=== PATIENT | female | born 1950 | race Caucasian/White ===

== ENCOUNTER 2023-12-31 23:08 | Inpatient (IN) ==
[2023-12-31 23:41] LABS: ABS Basophils 0.1 10^3/uL (0.0-0.1); ABS Eosinophils 0.1 10^3/uL (0.0-0.5); ABS Lymphocytes 1.3 10^3/uL (1.0-4.8); ABS Monocytes 0.8 10^3/uL (0.0-0.9); ABS Neutrophils 9.5 10^3/uL (1.5-7.6); Hematocrit 34.4 % (35-45); Hemoglobin 11.2 g/dL (11.5-14.3); Lymphocyte % 11.3 %; Mean Corpuscular Hemoglobin 29.6 pg (27-33); Mean Corpuscular Hgb Conc 32.5 g/dL (31-36); Mean Corpuscular Volume 90.9 fL (80-97); Mean Platelet Volume 6.6 fL (7.5-11.2); Platelet Count 244 10^3/uL (150-450); Red Blood Count 3.78 10^6/uL (3.63-4.92); Red Cell Distribution Width 15.1 % (12-17); White Blood Count 11.9 10^3/uL (3.8-11.8)
[2023-12-31 23:47] LABS: INR 1.17 (0.83-1.13)
[2024-01-01 00:06] LABS: Urine Appearance Clear; Urine Bilirubin 1+ (Negative); Urine Blood Negative (Negative); Urine Color Yellow; Urine Glucose Negative (Negative); Urine Ketones Negative (Negative); Urine Nitrite Negative (Negative); Urine Protein 1+ (>=30 mg/dL) (Negative); Urine Specific Gravity 1.026 (1.002-1.030); Urine Urobilinogen 1+ (Negative); Urine pH 5.5 (5.0-8.0)
[2024-01-01 00:08] LABS: High Sens Troponin Baseline 5 pg/mL (<15)
[2024-01-01 00:13] LABS: Urine Bacteria Absent /HPF (Absent); Urine Red Blood Cell Trace(0-2/hpf) /HPF (0-Trace); Urine White Blood Cell Trace(0-5/hpf) /HPF (0-Trace)
[2024-01-01 00:52] LABS: ALT 40 U/L (7-52); Albumin 3.7 g/dL (3.2-5.2); Albumin/Globulin Ratio 0.9 (1-3); Alkaline Phosphatase 90 U/L (35-149); Anion Gap 9 mmol/L (2-16); Blood Urea Nitrogen 34 mg/dL (6-24); CO2 Carbon Dioxide 17 mmol/L (22-32); Calcium 9.2 mg/dL (8.6-10.3); Chloride 106 mmol/L (101-111); Creatine Kinase 97 U/L (10-223); Creatinine, Serum 2.31 mg/dL (0.51-0.95); Globulin 4.1 g/dL (2-4); Glucose 229 mg/dL (70-100); Sodium 132 mmol/L (135-145); Total Bilirubin 0.5 mg/dL (0.2-1.0); Total Protein 7.8 g/dL (6.4-8.9); eGFR CKD-EPI 21.5 (>60)
[2024-01-01 00:59] LABS: TSH Ultra Thyroid Stim Horm 2.94 mcIU/mL (0.34-5.60)
[2024-01-01 01:21] LABS: Magnesium 1.6 mg/dL (1.9-2.7); Potassium Redraw 6.3 mmol/L (3.5-5.0)
[2024-01-01] MEDS: CALCIUM GLUCONATE 1GM/50ML NS 1 GM/50 ML BAG IV ONE (01:32)
[2024-01-01] MEDS: Dextrose 50% Syringe 50 ml 25 GM/50 ML SYRINGE IV PUSH ONE ×2 (01:32→05:38)
[2024-01-01] MEDS: Furosemide 40 mg/4 ml IV VIAL IV SLOW PU ONE (01:32)
[2024-01-01 03:41] LABS: Alcohol, S < 13 mg/dL (<13); Potassium 5.6 mmol/L (3.5-5.0); Uric Acid 6.9 mg/dL (2.3-6.6)
[2024-01-01] MEDS ORDERED: Albuterol HFA INHALER 8 gm MDI INH PRN (05:33)
[2024-01-01] MEDS: Piperacillin/Tazobac 3.375 BAG 3.375 GM/100 ML BAG IV ONE (05:41)
[2024-01-01] MEDS: NS 0.9% 1000 ml BAG 1,000 ML IV SCH ×2 (05:42→14:50)
[2024-01-01] MEDS ORDERED: Zosyn per Pharmacy NOTE FOLLOW UP SCH (06:00)
[2024-01-01] MEDS: Magnesium Sulf 4 GM/100 ML IV 4,000 MG/100 ML BAG IVPB ONE (06:34)
[2024-01-01] MEDS ORDERED: Dextrose 50% Syringe 50 ml 25 GM/50 ML SYRINGE IV PUSH PRN (07:17)
[2024-01-01] MEDS ORDERED: ZOSYN 3.375 GM Q8H per EXTENDED INFUSION IV SCH (10:00)
[2024-01-01] MEDS: ZOSYN 3.375 GM Q8H per EXTENDED INFUSION IV SCH (10:03)
[2024-01-01] MEDS: Enoxaparin 30 MG/0.3 ML SYR SUBCUT SCH (10:12)
[2024-01-01] MEDS: DULoxetine DR 60 mg CAP PO SCH (10:35)
[2024-01-01] MEDS: SODIUM ZIRCONIUM CYCLOSILICATE 10 GM PACKET PO SCH (10:35)
[2024-01-01 11:20] LABS: Folate 16.03 ng/mL (5.90-24.80)
[2024-01-01] MEDS: Mometasone/Formoter 100/5 MDI INH SCH (11:41)
[2024-01-01 14:50] LABS: ABS Basophils 0.1 10^3/uL (0.0-0.1); ABS Eosinophils 0.2 10^3/uL (0.0-0.5); ABS Lymphocytes 2.2 10^3/uL (1.0-4.8); ABS Monocytes 0.8 10^3/uL (0.0-0.9); ABS Neutrophils 5.5 10^3/uL (1.5-7.6); Eosinophil % 2.3 %; Hematocrit 30.7 % (35-45); Hemoglobin 10.1 g/dL (11.5-14.3); Lymphocyte % 24.9 %; Mean Corpuscular Hemoglobin 29.8 pg (27-33); Mean Corpuscular Hgb Conc 32.9 g/dL (31-36); Mean Corpuscular Volume 90.4 fL (80-97); Mean Platelet Volume 6.5 fL (7.5-11.2); Platelet Count 190 10^3/uL (150-450); Red Cell Distribution Width 14.9 % (12-17); White Blood Count 8.7 10^3/uL (3.8-11.8)
[2024-01-01 15:20] LABS: RBC Parasite Smear No Parasites Seen (No Parasite)
[2024-01-01 15:47] LABS: Calcium 8.7 mg/dL (8.6-10.3); Creatinine, Serum 2.44 mg/dL (0.51-0.95); eGFR CKD-EPI 20.1 (>60)
[2024-01-01 16:08] LABS: Venous Bicarbonate HCO3 19.5 mmol/L (24-28)
[2024-01-01] MEDS: Cyanocobalamin INJ 1,000 MCG/ML VIAL 1 ML VIAL IM SCH (16:51)
[2024-01-01 17:39] LABS: Urine Benzodiazepine Screen None Detected (None Detect); Urine Cannabinoids Screen None Detected (None Detect); Urine Opiates Screen Presumptive Positive (None Detect)
[2024-01-01 21:41] LABS: Urine Buprenorphine Screen None Detected (None Detect); Urine Fentanyl Screen None Detected (None Detect); Urine Hydrocodone Screen Presumptive Positive (None Detect)
[2024-01-02 06:21] LABS: ABS Eosinophils 0.2 10^3/uL (0.0-0.5); ABS Lymphocytes 1.6 10^3/uL (1.0-4.8); ABS Monocytes 0.7 10^3/uL (0.0-0.9); ABS Neutrophils 5.3 10^3/uL (1.5-7.6); ABS Nucleated RBC 0.01 10^3/ul; Eosinophil % 2.1 %; Hematocrit 29.1 % (35-45); Hemoglobin 9.9 g/dL (11.5-14.3); Lymphocyte % 20.5 %; Mean Corpuscular Hemoglobin 30.8 pg (27-33); Mean Corpuscular Volume 90.6 fL (80-97); Mean Platelet Volume 6.7 fL (7.5-11.2); Nucleated Red Blood Cells % 0.2 %/100WBC (0.0-0.8); Platelet Count 165 10^3/uL (150-450); Red Blood Count 3.21 10^6/uL (3.63-4.92); Red Cell Distribution Width 14.9 % (12-17); White Blood Count 7.8 10^3/uL (3.8-11.8)
[2024-01-02 06:37] LABS: Calcium 8.4 mg/dL (8.6-10.3); Creatinine, Serum 2.07 mg/dL (0.51-0.95); Magnesium 1.9 mg/dL (1.9-2.7); Potassium 4.9 mmol/L (3.5-5.0); eGFR CKD-EPI 24.5 (>60)
[2024-01-02] MEDS: Magnesium Sulfate IV 1GM/100ML 1 GM/100 ML BAG IV ONE (08:48)
[2024-01-02 09:19] LABS: PCO2 Arterial 34 mmHg (35-45); PO2 Arterial 81 mmHg (80-100)
[2024-01-02] MEDS: Nicotine PATCH 14 MG/24 HR PATCH TRANSDERM SCH (15:01)
[2024-01-02] MEDS: NS 0.9% 1000 ml BAG 1,000 ML IV SCH (17:31)
[2024-01-03] MEDS: Haloperidol 5 mg/ml SDV IV/IM 5 MG/ML AMP IM ONE (03:08)
[2024-01-03] MEDS: Acetaminophen IV 1 GM/100ML 1,000 MG/100 ML BAG IV PRN (03:13)
[2024-01-03 06:34] LABS: Calcium 8.8 mg/dL (8.6-10.3); Creatinine, Serum 1.46 mg/dL (0.51-0.95); Magnesium 1.7 mg/dL (1.9-2.7); Potassium 4.5 mmol/L (3.5-5.0); eGFR CKD-EPI 37.3 (>60)
[2024-01-03 07:02] LABS: ABS Eosinophils 0.2 10^3/uL (0.0-0.5); ABS Lymphocytes 1.5 10^3/uL (1.0-4.8); ABS Monocytes 0.6 10^3/uL (0.0-0.9); ABS Neutrophils 4.9 10^3/uL (1.5-7.6); ABS Nucleated RBC 0.02 10^3/ul; Eosinophil % 2.2 %; Hematocrit 32.1 % (35-45); Hemoglobin 10.1 g/dL (11.5-14.3); Lymphocyte % 21.3 %; Mean Corpuscular Hgb Conc 31.5 g/dL (31-36); Mean Corpuscular Volume 98.2 fL (80-97); Mean Platelet Volume 6.8 fL (7.5-11.2); Nucleated Red Blood Cells % 0.2 %/100WBC (0.0-0.8); Platelet Count 150 10^3/uL (150-450); Red Blood Count 3.26 10^6/uL (3.63-4.92); Red Cell Distribution Width 16.2 % (12-17); White Blood Count 7.2 10^3/uL (3.8-11.8)
[2024-01-03] MEDS: Magnesium Sulfate 2 gm BAG 2 GM/50 ML BAG IVPB ONE (08:10)
[2024-01-03] MEDS: Lactated Ringers 1000 ml BAG 1,000 ML IV SCH (13:01)
[2024-01-03] MEDS: Nystatin TOP POWDER 15 GM BTL TOPICAL SCH (20:43)
[2024-01-04 07:38] LABS: Calcium 8.8 mg/dL (8.6-10.3); Creatinine, Serum 1.14 mg/dL (0.51-0.95); Magnesium 1.4 mg/dL (1.9-2.7); eGFR CKD-EPI 50.2 (>60)
[2024-01-04] MEDS ORDERED: Metoprolol Tartrate 5 mg VIAL 5 ml VIAL (1 mg/ml) IV PRN ×2 (14:44→16:58)
[2024-01-04] MEDS: Metoprolol Tartrate 5 mg VIAL 5 ml VIAL (1 mg/ml) IV PRN (14:50)
[2024-01-04] MEDS: Iodixanol (CONTRAST) 320 MG/ML 100 ML SDV IV ONE (15:27)
[2024-01-04] MEDS ORDERED: Ondansetron 4 mg VIAL 2 MG/ML 2 ml VIAL IV PRN (16:32)
[2024-01-04] MEDS: Enoxaparin 80 MG/0.8 ML SYR SUBCUT ONE (21:36)
[2024-01-04 22:10] LABS: ABS Basophils 0.1 10^3/uL (0.0-0.1); ABS Eosinophils 0.3 10^3/uL (0.0-0.5); ABS Lymphocytes 1.2 10^3/uL (1.0-4.8); ABS Monocytes 0.7 10^3/uL (0.0-0.9); ABS Neutrophils 8.5 10^3/uL (1.5-7.6); ABS Nucleated RBC 0.01 10^3/ul; Eosinophil % 2.4 %; Hematocrit 34.2 % (35-45); Hemoglobin 11.2 g/dL (11.5-14.3); Lymphocyte % 11.5 %; Mean Corpuscular Hemoglobin 29.9 pg (27-33); Mean Corpuscular Hgb Conc 32.8 g/dL (31-36); Mean Corpuscular Volume 91.2 fL (80-97); Mean Platelet Volume 6.8 fL (7.5-11.2); Nucleated Red Blood Cells % 0.1 %/100WBC (0.0-0.8); Platelet Count 183 10^3/uL (150-450); Red Blood Count 3.76 10^6/uL (3.63-4.92); Red Cell Distribution Width 15.3 % (12-17); White Blood Count 10.8 10^3/uL (3.8-11.8)
[2024-01-05] MEDS ORDERED: Enoxaparin 40 MG/0.4 ML SYR SUBCUT SCH (08:00)
[2024-01-05 09:40] LABS: ABS Basophils 0.1 10^3/uL (0.0-0.1); ABS Eosinophils 0.5 10^3/uL (0.0-0.5); ABS Lymphocytes 1.4 10^3/uL (1.0-4.8); ABS Monocytes 0.6 10^3/uL (0.0-0.9); ABS Neutrophils 5.4 10^3/uL (1.5-7.6); Hematocrit 32.8 % (35-45); Hemoglobin 11.3 g/dL (11.5-14.3); Lymphocyte % 17.2 %; Mean Corpuscular Hemoglobin 30.7 pg (27-33); Mean Corpuscular Hgb Conc 34.5 g/dL (31-36); Mean Corpuscular Volume 89.2 fL (80-97); Mean Platelet Volume 6.4 fL (7.5-11.2); Platelet Count 183 10^3/uL (150-450); Red Blood Count 3.68 10^6/uL (3.63-4.92); Red Cell Distribution Width 14.4 % (12-17)
[2024-01-05 10:47] LABS: Calcium 8.8 mg/dL (8.6-10.3); Creatinine, Serum 1.13 mg/dL (0.51-0.95); Potassium 3.3 mmol/L (3.5-5.0); eGFR CKD-EPI 50.7 (>60)
[2024-01-05] MEDS: KCL 20 MEQ/100 ML IVPREMIX 20 MEQ/100 ML BAG IV SCH (15:18)
[2024-01-05] MEDS: Magnesium Sulfate 2 gm BAG 2 GM/50 ML BAG IVPB ONE (15:18)
[2024-01-05] MEDS: Lidocaine PATCH 5% PATCH TRANSDERM SCH (15:35)
[2024-01-05] MEDS: Magnesium Sulfate IV 1GM/100ML 1 GM/100 ML BAG IV ONE (17:12)
[2024-01-06 05:39] LABS: ABS Basophils 0.1 10^3/uL (0.0-0.1); ABS Eosinophils 0.5 10^3/uL (0.0-0.5); ABS Lymphocytes 1.6 10^3/uL (1.0-4.8); ABS Monocytes 0.6 10^3/uL (0.0-0.9); ABS Neutrophils 3.8 10^3/uL (1.5-7.6); Eosinophil % 8.4 %; Hematocrit 30.4 % (35-45); Hemoglobin 10.4 g/dL (11.5-14.3); Lymphocyte % 23.9 %; Mean Corpuscular Hemoglobin 30.1 pg (27-33); Mean Corpuscular Hgb Conc 34.3 g/dL (31-36); Mean Corpuscular Volume 87.9 fL (80-97); Mean Platelet Volume 6.4 fL (7.5-11.2); Platelet Count 177 10^3/uL (150-450); Red Blood Count 3.47 10^6/uL (3.63-4.92); Red Cell Distribution Width 14.3 % (12-17); White Blood Count 6.6 10^3/uL (3.8-11.8)
[2024-01-06 06:20] LABS: Calcium 8.4 mg/dL (8.6-10.3); Creatinine, Serum 1.11 mg/dL (0.51-0.95); Magnesium 1.4 mg/dL (1.9-2.7); Potassium 3.3 mmol/L (3.5-5.0); eGFR CKD-EPI 51.8 (>60)
[2024-01-06] MEDS: Magnesium Sulfate 2 gm BAG 2 GM/50 ML BAG IVPB ONE (08:26)
[2024-01-06] MEDS: Sulfur Hexaflouride MICROSPHR 25 MG VIAL IV ONE (09:18)
[2024-01-06] MEDS ORDERED: Sulfur Hexaflouride MICROSPHR 25 MG VIAL ONE (10:10)
[2024-01-06] MEDS: Magnesium Sulfate IV 1GM/100ML 1 GM/100 ML BAG IV ONE (10:12)
[2024-01-06] MEDS: KCL 20 MEQ/100 ML IVPREMIX 20 MEQ/100 ML BAG IV SCH (10:56)
[2024-01-06 13:24] LABS: Flag, M-protein Isotype Negative (Negative); Immunoglobulin A (IgA), S 457 mg/dL (61 - 356); Immunoglobulin G (IgG), S 2120 mg/dL (767 - 1590); Immunoglobulin M (IgM), S 172 mg/dL (37 - 286)
[2024-01-07 06:31] LABS: ABS Basophils 0.1 10^3/uL (0.0-0.1); ABS Eosinophils 0.6 10^3/uL (0.0-0.5); ABS Lymphocytes 1.9 10^3/uL (1.0-4.8); ABS Monocytes 0.6 10^3/uL (0.0-0.9); ABS Neutrophils 3.3 10^3/uL (1.5-7.6); ABS Nucleated RBC 0.01 10^3/ul; Eosinophil % 9.4 %; Hemoglobin 10.8 g/dL (11.5-14.3); Lymphocyte % 29.4 %; Mean Corpuscular Hemoglobin 29.9 pg (27-33); Mean Corpuscular Hgb Conc 33.6 g/dL (31-36); Mean Corpuscular Volume 89.1 fL (80-97); Nucleated Red Blood Cells % 0.1 %/100WBC (0.0-0.8); Platelet Count 181 10^3/uL (150-450); Red Blood Count 3.59 10^6/uL (3.63-4.92); Red Cell Distribution Width 14.8 % (12-17); White Blood Count 6.5 10^3/uL (3.8-11.8)
[2024-01-07 06:55] LABS: Calcium 8.6 mg/dL (8.6-10.3); Creatinine, Serum 1.19 mg/dL (0.51-0.95); Magnesium 1.5 mg/dL (1.9-2.7); Potassium 3.4 mmol/L (3.5-5.0); eGFR CKD-EPI 47.7 (>60)
[2024-01-07] MEDS: Magnesium Sulfate 2 gm BAG 2 GM/50 ML BAG IVPB ONE (08:18)
[2024-01-07] MEDS: KCL 20 MEQ/100 ML IVPREMIX 20 MEQ/100 ML BAG IV SCH (10:09)
[2024-01-07 17:14] LABS: Albumin/Globulin Ratio 0.19; Gamma Globulin 43.8 mg/24 h; Total Protein, 24 HR, U 175 mg/24 h (<229); Urine Volume 875 mL
[2024-01-08 07:09] LABS: ABS Eosinophils 0.8 10^3/uL (0.0-0.5); ABS Lymphocytes 2.2 10^3/uL (1.0-4.8); ABS Monocytes 0.7 10^3/uL (0.0-0.9); ABS Neutrophils 3.8 10^3/uL (1.5-7.6); ABS Nucleated RBC 0.01 10^3/ul; Eosinophil % 10.7 %; Hematocrit 33.7 % (35-45); Hemoglobin 11.4 g/dL (11.5-14.3); Lymphocyte % 28.8 %; Mean Corpuscular Hemoglobin 30.3 pg (27-33); Mean Corpuscular Hgb Conc 33.7 g/dL (31-36); Mean Corpuscular Volume 89.9 fL (80-97); Mean Platelet Volume 6.6 fL (7.5-11.2); Nucleated Red Blood Cells % 0.1 %/100WBC (0.0-0.8); Platelet Count 189 10^3/uL (150-450); Red Blood Count 3.75 10^6/uL (3.63-4.92); White Blood Count 7.6 10^3/uL (3.8-11.8)
[2024-01-08 07:51] LABS: Anion Gap 9 mmol/L (2-16); Blood Urea Nitrogen 8 mg/dL (6-24); CO2 Carbon Dioxide 21 mmol/L (22-32); Calcium 8.6 mg/dL (8.6-10.3); Chloride 106 mmol/L (101-111); Glucose 172 mg/dL (70-100); Sodium 136 mmol/L (135-145); eGFR CKD-EPI 42.9 (>60)
[2024-01-08 09:37] LABS: Magnesium 1.5 mg/dL (1.9-2.7); Potassium Redraw 3.6 mmol/L (3.5-5.0)
[2024-01-08] MEDS: Magnesium Sulfate 2 gm BAG 2 GM/50 ML BAG IVPB ONE (12:22)
[2024-01-08] MEDS: Magnesium Sulfate IV 1GM/100ML 1 GM/100 ML BAG IV ONE (17:36)
[2024-01-09 06:08] LABS: Rapid COVID-19 Molecular Undetected (Undetected)
[2024-01-09 09:08] LABS: Calcium 8.4 mg/dL (8.6-10.3); Creatinine, Serum 1.27 mg/dL (0.51-0.95); Magnesium 1.8 mg/dL (1.9-2.7); Potassium 3.6 mmol/L (3.5-5.0); eGFR CKD-EPI 44.1 (>60)
[2024-01-09 10:28] VITALS: BP 152/68
== END 2024-01-09 11:38 | DRG 91 ==
LOC: ED 23:08 → EDHOLD 23:08 → SUATTDRO 01-01 04:19 → MEDTELE 01-01 07:03 → SUATTDRO 01-02 13:08
PROVIDERS: ADMIT Internal Medicine; ATTEND Internal Medicine